=== PATIENT | female | born 2000 | race African-American/Black ===

== ENCOUNTER 2021-12-20 15:03 | Emergency (ER) | payer OTHER, SELFPAY ==
[2021-12-20 15:20] VITALS: BP 116/81; PULSE 119; RESP 18; TEMP 36.8; O2SAT 100
--- NOTE | 2021-12-20 16:14 | ED.GENADULT ---
HPI - General Adult General Chief complaint: Extremity Problem,Nontraumatic Stated complaint: Swollen Knees Time Seen by Provider: 12/20/21 15:56 Source: patient and RN notes reviewed Mode of arrival: ambulatory Limitations: no limitations History of Present Illness HPI narrative: Patient presents today complaining of bilateral knee swelling and pain 9 related to her rheumatoid arthritis. 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 She is currently waiting on her new insurance card and cannot make an appointment until time that she receives it. She was supposed to get switched over from Humira to a new biologic medication by her transformer shop supervisor, but since she is no longer seeing that transformer shop supervisor she was taken off the Humira. She is currently taking 10 mg of prednisone daily, Plaquenil, and Voltaren. She currently rates her pain 8/10, which increases with walking. MD complaint: Bilateral knee swelling Related Data Home Medications Medication Instructions Recorded Confirmed diclofenac sodium 75 mg PO DIRECTED 12/20/21 12/20/21 hydroxychloroquine 200 mg PO DIRECTED 12/20/21 12/20/21 prednisone 10 mg PO DIRECTED 12/20/21 12/20/21 Allergies Allergy/AdvReac Type Severity Reaction Status Date / Time No Known Allergies Allergy Verified 12/20/21 15:41 Review of Systems Review of Systems: CONSTITUTIONAL: Denies body aches, fever, chills, or sweats. EYES: Denies visual changes, redness, or discharge. ENT: Denies rhinorrhea, congestion, sore throat, or otalgia. CARDIOVASCULAR: Denies chest pain, palpitations, or edema. RESPIRATORY: Denies cough or dyspnea. GASTROINTESTINAL: Denies abdominal pain, nausea, vomiting, or diarrhea. GENITOURINARY: Denies dysuria or hematuria. SKIN: Denies rash, itching, or wounds. MUSCULOSKELETAL: Denies back pain, or myalgia.+ Bilateral knee swelling NEUROLOGIC: Denies headache, numbness, tingling, or weakness. PSYCH: Denies depression or anxiety. [facility] Past Medical History Medical History (Updated 12/20/21 @ 16:19 by Calli Salas, LINE INSTALLER REPAIRER, ) Rheumatoid arthritis Comments At time of signature, I have reviewed and agree with nursing past medical, surgical, social and family history unless otherwise noted. Please see nursing chart for further information. There is no relevant family history pertinent to the presenting complaint Exam Narrative: GENERAL: Well-appearing, well-nourished, and in mild to moderate pain distress. HEAD: Normocephalic, atraumatic. EYES: EOMI. No redness or drainage. Conjunctivae normal. ENT: Mucous membranes pink and moist. NECK: Normal AROM. CHEST: No respiratory distress. EXTREMITIES: Bilateral knees: Moderate knee effusions noted bilaterally. No induration or erythema noted. Tender to palpation. Full range of motion with increased pain. Distal sensation intact. Capillary refill normal. Posterior tibial pulses normal. SKIN: Warm, dry, no rash. Capillary refill normal. Normal skin turgor. NEURO: No focal deficits. Alert and oriented x3. Gait steady. PSYCH: Normal affect. No signs of depression or anxiety. Course Course Level of Care: Express Care Visit Vital Signs Vital signs: Vital Signs Temperature 98.3 F 12/20/21 15:20 Pulse Rate 119 H 12/20/21 15:20 Respiratory Rate 18 12/20/21 15:20 Blood Pressure 116/81 12/20/21 15:20 Pulse Oximetry 100 12/20/21 15:20 Temperature 98.3 F 12/20/21 15:20 Pulse Rate 119 H 12/20/21 15:20 Respiratory Rate 18 12/20/21 15:20 Blood Pressure 116/81 12/20/21 15:20 Pulse Oximetry 100 12/20/21 15:20 Reviewed. Pt has been instructed to follow up with her PCP regarding her elevated blood pressure today. Medical Decision Making Differential Diagnosis Differential Diagnosis: Rheumatoid arthritis flare, infected j
== END 2021-12-20 16:25 | disposition home or self-care (01) ==
PROVIDERS: Emergency Provider Nurse Practitioner
DX: M06.9 Rheumatoid arthritis, unspecified (principal)
CPT/HCPCS: 99203; G0463